=== PATIENT | female | born 1975 | race Hispanic/Latino ===

== ENCOUNTER 2017-05-31 09:56 | Emergency (ER) | payer SELFPAY ==
[2017-05-31] MEDS ORDERED: Meclizine HCl 25 MG TAB ONE (10:33)
[2017-05-31] MEDS ORDERED: Ondansetron ODT 4 MG TAB ONE (10:36)
== END 2017-05-31 11:07 | disposition home or self-care (01) ==
LOC: NAV ERS 09:56
DX: H81.13 Benign paroxysmal vertigo, bilateral (principal); E11.9 Type 2 diabetes mellitus without complications; E66.9 Obesity, unspecified
CPT/HCPCS: 93005; Q0162

== ENCOUNTER 2021-07-21 20:49 | Emergency (ER) | payer OTHER, SELFPAY ==
[2021-07-21] MEDS ORDERED: Sodium Chloride 0.9% 1,000 ML ONE ×3 (21:22→22:45)
[2021-07-21] MEDS ORDERED: Sulfameth/Trimethoprim DS 800-160mg TAB ONE (21:22)
[2021-07-21] MEDS ORDERED: Ketorolac Tromethamine 30 MG/ML VIAL ONE (21:36)
[2021-07-21 21:40] LABS: #Basophils 0.1 thou/uL (0.0-0.2); #Eosinphils 0.1 thou/uL (0.0-0.7); #Lymphocytes 2.2 thou/uL (1.20-3.40); #Monocytes 0.6 thou/uL (0.11-0.59); #Neutrophils 3.1 thou/uL (1.40-6.50); %Basophils 1.6 % (0.0-1.0); %Eosinophils 2.2 % (0.0-10.0); %Lymphocytes 35.7 % (21.0-51.0); %Monocytes 9.4 % (0.0-10.0); %Neutrophils 51.1 % (42.0-75.0); Hemoglobin 14.3 g/dL (12.0-16.0); Mean Corpuscular HGB CONC 31.8 g/dL (32.0-36.0); Mean Corpuscular Hemoglobin 27.9 pg (27.0-31.0); Mean Corpuscular Volume 87.8 fL (78.0-98.0); Mean Platelet Volume 7.6 fL (7.4-10.4); Platelet Count 216 thou/uL (130-400); Red Blood Cell (RBC) Count 5.14 mill/uL (4.20-5.40); White Blood Cell (WBC) Count 6.1 thou/uL (4.8-10.8)
[2021-07-21 21:44] LABS: Bilirubin Negative (Negative); Blood, Urine Moderate (Negative); Clarity Clear (Clear); Glucose, Urine (Dipstick) >=1000 mg/dL (Negative); Ketone, Urine Negative (Negative); Leukocyte Negative (Negative); Nitrite Negative (Negative); Protein, Urine (Dipstick) 100 mg/dL (Neg-Trace); Specific Gravity, Urine 1.015 (1.005-1.030); Urobilinogen 0.2 mg/dL (Less than 2); pH, Urine 5.5 (5.0-9.0)
[2021-07-21 21:54] LABS: ALT (SGPT) 24 U/L (8-55); AST (SGOT) 20 U/L (5-34); Albumin 3.5 g/dL (3.5-5.0); Alkaline Phosphatase 87 U/L (40-110); Anion Gap 12 mmol/L (10-20); BUN (Urea Nitrogen) 7 mg/dL (7.0-18.7); Bilirubin, Total 0.4 mg/dL (0.2-1.2); Calc. Creatinine Clearance 0 mL/min (70-130); Calcium 9.8 mg/dL (7.8-10.44); Carbon Dioxide 25 mmol/L (22-29); Chloride 101 mmol/L (98-107); Globulin 4.3 g/dL (2.4-3.5); Glucose 368 mg/dL (70-105); Potassium 3.4 mmol/L (3.5-5.1); Protein, Total 7.8 g/dL (6.0-8.3); Sodium 135 mmol/L (136-145)
[2021-07-21 21:59] LABS: RBC/HPF 0-3 HPF (0-3); Squamous Epithelial 0-3 HPF (0-3); WBC/HPF 0-3 HPF (0-3)
[2021-07-21] MEDS ORDERED: Vancomycin HCl 500 MG VIAL ONE (22:01)
[2021-07-21] MEDS ORDERED: Sodium Chloride 0.9% 500 ML ONE (22:01)
[2021-07-21 22:02] LABS: Base Excess-Venous 0.4 mmol/L (-2.0 to 3.0); Bicarbonate (HCO3v) 26.4 mmol/L (22.0-28.0); CO2 Tension (PvCO2) 46.6 mmHg (42.0-51.0); Calcium, Ionized 1.22 mmol/L (1.15-1.33); Chloride 100 mmol/L (98-107); Hemoglobin - Calc 14.6 g/dL (12.0-16.0); Potassium 3.6 mmol/L (3.5-5.1); Sodium 138 mmol/L (138-145); T. Carbon Dioxide 27.8 mmol/L (22.0-28.0); vO2 Saturation-calc 89.2 % (60.0-85.0)
== END 2021-07-22 00:15 | disposition home or self-care (01) ==
LOC: NAV ERS 20:49
DX: L03.115 Cellulitis of right lower limb (principal); E11.65 Type 2 diabetes mellitus with hyperglycemia; E66.9 Obesity, unspecified
CPT/HCPCS: 36416; 80053; 81003; 81015; 82010; 82330; 82803; 83605; 85014; 85025; 87040; 96365; 96366; 96375; 36415-59; J1885; J3370; J7030; J7050

== ENCOUNTER 2022-12-09 14:41 | Emergency (ER) | payer SELFPAY | END 2022-12-09 15:40 | disposition home or self-care (01) | LOC: NAV ERS 14:41 | DX: L03.032 Cellulitis of left toe (principal); E11.9 Type 2 diabetes mellitus without complications; I10 Essential (primary) hypertension; E66.9 Obesity, unspecified | CPT/HCPCS: 99283 ==